=== PATIENT | male | born 2000 | race Caucasian/White ===

== ENCOUNTER 2024-04-11 09:59 | Inpatient (IN) | payer BC ==
[~2024-04-11] VITALS: Ht 177.8 cm; Wt 113.4 kg
[2024-04-11] MEDS: LEVETIRACETAM 500MG PREMIX 100 ML IV ONE ×2 (10:54)
[2024-04-11 10:55] LABS: BASOPHILS % 0.4 % (0.0-2.0); DIFFERENTIAL COMMENT 0; HEMATOCRIT. 44.4 % (42.0-52.0); HEMOGLOBIN. 15.9 g/dL (14.0-18.0); LYMPHOCYTES % 20.5 % (20.0-50.0); MEAN CORPUSCULAR HGB CONC 35.8 g/dL (31.0-37.0); MEAN CORPUSCULAR VOLUME 81.1 fL (80.0-94.0); MEAN PLATELET VOLUME 8.1 fl (7.4-10.4); MONOCYTES % 6.3 % (2.0-8.0); NEUTROPHILS % 71.8 % (40.0-76.0); PLATELET 276 x1000/uL (130-400); RED BLOOD CELL COUNT 5.47 mill/uL (4.7-6.1); RED CELL DISTRIBUTION WIDTH 14.8 % (11.6-14.6); WHITE BLOOD COUNT 9.8 x1000/uL (4.5-11.0)
[2024-04-11 11:06] LABS: CARBON DIOXIDE 24 mEq/L (21-32); CHLORIDE 108 mEq/L (98-107); POTASSIUM 4.2 mEq/L (3.5-5.1); SODIUM 140 mEq/L (136-145)
[2024-04-11 11:11] LABS: CREATININE 0.9 mg/dL (0.6-1.3)
[2024-04-11 11:12] LABS: GLUCOSE 102 mg/dL (70-105); UREA NITROGEN BLOOD 11 mg/dL (9-23)
[2024-04-11 11:13] LABS: ACETAMINOPHEN < 2 ug/mL (10-30); ALANINE AMINOTRANSFERASE 59 IU/L (10-49); ALBUMIN 4.6 g/dL (3.2-4.8); ASPARTATE AMINOTRANSFERASE 27 IU/L (<34)
[2024-04-11 11:14] LABS: BILIRUBIN TOTAL 0.6 mg/dL (0.1-1.0); PROTEIN TOTAL 7.3 g/dL (6.0-8.3)
[2024-04-11 11:25] LABS: ETHANOL BLOOD < 10 mg/dL (<10)
[2024-04-11] MEDS: LACTATED RINGERS 1,000 ML IV SCH (12:57)
[2024-04-11] MEDS ORDERED: ONDANSETRON HCL 4MG/2ML INJ IV PRN (14:00)
[2024-04-11] MEDS ORDERED: GUAIFENESIN 200MG/10ML SUGAR FREE UDC PO PRN (14:00)
[2024-04-11] MEDS ORDERED: MAGNESIUM/ALUMINUM HYDROXIDE/SIMETHICONE 30ML UDC PO PRN (14:00)
[2024-04-11] MEDS ORDERED: DOCUSATE SODIUM 100MG CAPSULE PO PRN (14:00)
[2024-04-11] MEDS ORDERED: CLONIDINE 0.1MG TABLET PO PRN (14:00)
[2024-04-11] MEDS ORDERED: IPRATROPIUM/ALBUTEROL 0.5-3(2.5)MG/3ML NEB HHN PRN (14:00)
[2024-04-11] MEDS ORDERED: ACETAMINOPHEN 325MG TABLET PO PRN ×2 (14:00)
[2024-04-11 15:18] LABS: *AMPHETAMINES SCREEN URINE NEGATIVE (NEGATIVE); *BENZODIAZEPINES SCREEN URINE NEGATIVE (NEGATIVE)
[2024-04-11 15:19] LABS: *BARBITURATES SCREEN URINE NEGATIVE (NEGATIVE); *COCAINE SCREEN URINE NEGATIVE (NEGATIVE); CANNABINOID URINE SCREEN NEGATIVE (NEGATIVE); ECSTASY MDMA SCREEN URINE NEGATIVE (NEGATIVE); METHADONE URINE SCREEN NEGATIVE (NEGATIVE); OPIATES URINE SCREEN NEGATIVE (NEGATIVE); PHENCYCLIDINE URINE SCREEN NEGATIVE (NEGATIVE)
[2024-04-11 15:44] LABS: CREATINE KINASE 108 IU/L (46-171)
[2024-04-11 15:44] LABS: AMMONIA 20 uMol/L (<32)
[2024-04-11 15:48] LABS: TROPONIN I HIGH SENSITIVITY < 4 ng/L (3.0-53)
[2024-04-11] MEDS ORDERED: LORAZEPAM 2MG/ML INJ IV PRN (16:23)
[2024-04-11] MEDS: ENOXAPARIN 40MG/0.4ML SYR SUBCUT SCH (21:00)
[2024-04-12 07:42] VITALS: BP 105/69; PULSE 74; RESP 18; TEMP 36.61404; O2SAT 98
[2024-04-12 07:47] VITALS: BP 105/69; PULSE 74; RESP 18; TEMP 36.6404
[2024-04-12 11:07] LABS: CHLORIDE 107 mEq/L (98-107); SODIUM 141 mEq/L (136-145)
[2024-04-12 11:08] LABS: CALCIUM 9.7 mg/dL (8.7-10.4); CARBON DIOXIDE 27 mEq/L (21-32)
[2024-04-12 11:13] LABS: CREATININE 0.8 mg/dL (0.6-1.3); GLUCOSE 90 mg/dL (70-105); TRIGLYCERIDE 135 mg/dL (0-150); UREA NITROGEN BLOOD 8 mg/dL (9-23)
[2024-04-12 11:14] LABS: LDL CHOLESTEROL 66 mg/dL (5-100)
[2024-04-12 11:15] LABS: CHOLESTEROL 121 mg/dL (<200); CREATINE KINASE 66 IU/L (46-171); HDL CHOLESTEROL 36 mg/dL (>55)
[2024-04-12 11:17] LABS: THYROID STIMULATING HORMONE 1.12 uIU/mL (0.55-4.78)
[2024-04-12 11:18] LABS: T4 FREE 1.27 ng/dL (0.89-1.76)
[2024-04-12 11:59] LABS: BASOPHILS % 0.5 % (0.0-2.0); DIFFERENTIAL COMMENT 0; EOSINOPHILS % 2.3 % (0.0-5.0); HEMATOCRIT. 43.3 % (42.0-52.0); HEMOGLOBIN. 15.5 g/dL (14.0-18.0); LYMPHOCYTES % 26.4 % (20.0-50.0); MEAN CORPUSCULAR HEMOGLOBIN 28.9 pg (28.0-32.0); MEAN CORPUSCULAR HGB CONC 35.8 g/dL (31.0-37.0); MEAN CORPUSCULAR VOLUME 80.9 fL (80.0-94.0); MEAN PLATELET VOLUME 8.3 fl (7.4-10.4); MONOCYTES % 5.7 % (2.0-8.0); NEUTROPHILS % 65.1 % (40.0-76.0); PLATELET 265 x1000/uL (130-400); RED BLOOD CELL COUNT 5.35 mill/uL (4.7-6.1); RED CELL DISTRIBUTION WIDTH 14.8 % (11.6-14.6); WHITE BLOOD COUNT 8.7 x1000/uL (4.5-11.0)
[2024-04-12 12:00] VITALS: BP_SYST 114; BP_SYST 121; BP_SYST 127; BP_DIAS 78; BP_DIAS 89; BP_DIAS 90; PULSE 86; RESP 22; TEMP 35.94732; O2SAT 97
[2024-04-12 13:38] VITALS: BP 114/78; PULSE 86; TEMP 96.7; O2SAT 97
== END 2024-04-12 14:00 | disposition home or self-care (01) | DRG 93 ==
LOC: ER 09:59 → 7WST 13:16 → EDBEDREQ 13:18 → EDBEDREQTM 13:18
PROVIDERS: ADMIT Preventive Medicine Clinical Informatics; ATTEND Preventive Medicine Clinical Informatics
DX: G92.8 Other toxic encephalopathy (principal); E78.5 Hyperlipidemia, unspecified; I25.2 Old myocardial infarction; R07.89 Other chest pain; F43.23 Adjustment disorder with mixed anxiety and depressed mood; R74.01 Elevation of levels of liver transaminase levels; F32.A Depression, unspecified; F41.0 Panic disorder [episodic paroxysmal anxiety]; R29.818 Other symptoms and signs involving the nervous system
CPT/HCPCS: 36415; 80048; 80053; 80061; 80305; 80307; 80320; 80329; 82140; 82550; 83605; 84439; 84443; 84484; 85025; 93005; J1650; J1953; G0480